=== PATIENT | female | born 1990 | race Caucasian/White ===

== ENCOUNTER 2019-04-10 06:00 | Outpatient (RCR) | payer OTHER, SELFPAY | END 2019-05-10 00:01 | LOC: SPT 06:00 | PROVIDERS: Family Provider Family Medicine; Visit Provider Family Medicine | DX: M54.5 Low back pain (principal) | CPT/HCPCS: 97110 ×2; 97112 ×2; 97140 ×3 ==

== ENCOUNTER 2019-05-11 06:00 | Outpatient (RCR) | payer OTHER, SELFPAY | END 2019-06-06 23:00 | disposition home or self-care (01) | LOC: SPT 06:00 | PROVIDERS: Family Provider Family Medicine; PCP Family Medicine; Visit Provider Family Medicine | DX: M54.5 Low back pain (principal) ==